=== PATIENT | female | born 1970 | race Caucasian/White ===

== ENCOUNTER 2020-07-17 09:03 | Emergency (ER) | payer MEDICAID, SELFPAY ==
[2020-07-17 09:04] VITALS: BP 109/78; PULSE 116; RESP 17; TEMP 36.1; O2SAT 99; BMI 21.9
--- NOTE | 2020-07-17 09:09 | NURSING ---
NO OLD EKGS
--- NOTE | 2020-07-17 09:33 | RAD_ITS ---
STUDY: X-RAY CHEST REASON FOR EXAM: Female, 50 years old. SYNCOPE, DIZZINESS X MONTHS, BECAME WORSE YESTERDAY TECHNIQUE: Single AP portable view of the chest. COMPARISON: None. FINDINGS: EKG electrodes are seen. The lungs are clear and expanded. There is no demonstrated pleural abnormality. Normal size heart. Normal mediastinum and pam. Normal visualized pulmonary arteries. Normal visualized aortic arch and descending thoracic aorta. Normal visualized thoracic spine. Normal visualized ribs, clavicles, and shoulders. There is no demonstrated abnormality of the visualized soft tissue structures of the upper abdomen. RAD/Chest 1 View (Portable) IMPRESSION: Normal x-ray examination of the chest. Electronically Signed: Rufino Griffin MD at 11:14 EST , Service support ,
--- NOTE | 2020-07-17 09:33 | CT_ITS ---
STUDY: CT BRAIN WITHOUT CONTRAST REASON FOR EXAM: Female, 50 years old. DIZZY XMONTHS, WORSE YESTERDAY, MULTIPLE SYNCOPAL EPISODES RADIATION DOSAGE (If Supplied By Facility): CTDIvol = ( 44.99 ) mGy, DLP = ( 762.36 ) mGycm TECHNIQUE: Transaxial CT imaging of the brain was performed without administration of intravenous contrast material. Individualized dose optimization techniques were used for this CT. COMPARISON: No relevant priors. FINDINGS: Normal soft tissue structures. Normal calvarium. Normal size ventricles and extra-axial spaces for the patient''s age. Normal white matter tracts of the cerebral hemispheres. Normal basal ganglia and thalami. Normal brainstem. Normal cerebellum. There is no intracranial hemorrhage. There are no findings of an acute ischemic infarction. Normal visualized paranasal sinuses. CT/Brain/Head without Contrast IMPRESSION: Normal unenhanced CT scan of the brain. Electronically Signed: Rufino Griffin MD at 10:32 EST , Service support ,
--- NOTE | 2020-07-17 09:34 | EKG12_ITS ---
Test Reason : SYNCOPE Blood Pressure : / mmHG Vent. Rate : 107 BPM Atrial Rate : 107 BPM P-R Int : 114 ms QRS Dur : 082 ms QT Int : 308 ms P-R-T Axes : 083 078 023 degrees QTc Int : 411 ms Sinus tachycardia Nonspecific T wave abnormality Abnormal ECG Confirmed by ROSA BAINS, REUBEN ([id number]), script editor SARAH NELSON ([id number]) on 07/18/2020 11:16:04 AM Referred By: TYESHA Confirmed By:REUBEN LEE MD
--- NOTE | 2020-07-17 09:35 | ED.DCSUM_ITS ---
History of Present Illness Chief Complaint: Dizziness Informant: Patient Narrative: 50-year-old female presenting for the evaluation of syncope. Patient states the past several months she has had several episodes of vertigo. In the past month the number of episodes have increased. She notes a sudden onset of room spinning and nausea. It is worse with positions. However yesterday she had several episodes where she suddenly would get hot sweaty and have more of a lightheadedness sensation and passed out. She not hurt her self in any of the episodes. She denies any chest pain palpitations or shortness of breath for the episodes. During the night she had one where she had some abdominal discomfort. She has a primary care physician in [place] but recently moved to [place]. She is currently treated for ADHD. She has never had an evaluation for vertigo. She tells me she tried some cannula with repositioning techniques this morning which did not make her feel good. Prior similar symptoms: Yes Past Medical History - Allergies and Home Meds Allergies/Adverse Reactions: Allergies No Known Allergies Allergy (Verified 07/17/20 09:03) Primary Care Physician: [facility] Doctor,Out of [NON-STAFF] - Past Medical History: - - ADHD Surgical History: noncontributory Lives: Spouse/ Significant Other Smoking Status: Former smoker Drugs: None Review of Systems General: Denies: Chills, Fever, Sweats Eyes: Denies: Visual changes - bilaterally, Diplopia ENT: Denies: Rhinorrhea, Sore throat Cardiovascular: Reports: - - Syncope. Denies: Chest pain, Palpitations, Heart racing Respiratory: Denies: Dyspnea, Cough, Dyspnea on exertion Gastrointestinal: Denies: Abdominal pain, Nausea, Vomiting, Diarrhea, Melena, Hematochezia Genitourinary: Denies: Dysuria, Hematuria, Frequency Musculoskeletal: Denies: Back pain, Extremity Pain Skin: Denies: Rash, Wounds Neurological: Reports: - - Vertigo. Denies: Headache, Weakness, Parasthesia, Numbness Physical Exam Vital Signs/Narrative: Vital Signs Temp Pulse Resp BP Pulse Ox 07/17/20 09:04 96.9 F L 116 H 17 109/78 99 Inital Vital Signs reviewed: Yes General: Well nourished, Well developed, No Acute Distress Head: Normocephalic, Atraumatic Eyes: Perrl, EOMI ENT: Moist mucous membranes, No rhinorrhea Neck: Supple, Nontender Cardiovascular: Regular rate, Regular rhythm, No murmurs Respiratory: No distress, CTA bilaterally, Chest nontender Abdomen: Soft, Nontender, Nondistended, Normal bowel sounds Back: Nontender, Normal Inspection Extremities: Nontender, No edema Skin: Normal color, No rash Neurological: Alert, Oriented x3, Cranial nerves II-XII grossly intact, Normal Strength, Normal Sensation Psychological: Normal affect, Normal Mood Diagnostic/Tx/Re-eval Clinical Impression(s) from Imaging Studies Brain CT 07/17/20 09:33 IMPRESSION: Normal unenhanced CT scan of the brain. Electronically Signed: Rufino Griffin MD at 10:32 EST , Service support , Laboratory Last Values WBC 7.7 K/mm3 (4.4-11.0) 07/17/20 09:55 RBC 5.38 M/mm3 (4.2-5.4) 07/17/20 09:55 Hgb 16.0 g/dL (12.0-15.0) H 07/17/20 09:55 Hct 48.9 % (37-47) H 07/17/20 09:55 MCV 90.9 fL (81-99) 07/17/20 09:55 MCH 29.7 pg (27.0-32.0) 07/17/20 09:55 MCHC 32.7 g/dL (32-36) 07/17/20 09:55 RDW Std Deviation 40.9 fl (35.1-43.9) 07/17/20 09:55 RDW Coeff of Mariama 12.3 % (11.6-14.6) 07/17/20 09:55 Plt Count 227 K/mm3 (150-450) 07/17/20 09:55 MPV 9.1 fl (6.2-12.0) 07/17/20 09:55 Immature Gran % (Auto) 0.300 % (0.0-0.9) 07/17/20 09:55 Neut % (Auto) 79.6 % (47-70) H 07/17/20 09:55 Lymph % (Auto) 12.7 % (19-41) L 07/17/20 09:55 [place] % (Auto) 6.1 % (0-10) 07/17/20 09:55 Eos % (Auto) 0.5 % (0-5) 07/17/20 09:55 Baso % (Auto) 0.8 % (0-1) 07/17/20 09:55 Absolute Neuts (auto) 6.2 X10^3/uL (2.0-7.7) 07/17/20 09:55 Absolute Lymphs (auto) 0.98 X10^3/uL (0.83-4.51) 07/17/20 09:55 Nucleated RBC % 0 % (0-5) 07/17/20 09:55 Sodium 138 mmol/L (136-145) 07/17/20 09:55 Potassium 4.0 mmol/L (3.5-5.1) 07/17/20 09:55 Chloride 103 mmol/L (98-107) 07/17/20 09:55 Carbon Dioxide 29.0 mmol/L (21.0-32.0) 07/17/20 09:55 Anion Gap 6 (5-15) 07/17/20 09:55 BUN 15 mg/dL (7-18) 07/17/20 09:55 Creatinine 0.71 mg/dL (0.55-1.02) 07/17/20 09:55 Estim Creat Clear Calc 75.81 ml/min 07/17/20 09:55 Est GFR (MDRD) Af Amer 113 mL/min (>60) 07/17/20 09:55 Est GFR (MDRD) Non-Af 93 mL/min (>60) 07/17/20 09:55 BUN/Creatinine Ratio 21.2 RATIO (10-20) H 07/17/20 09:55 Glucose 103 mg/dL (74-106) 07/17/20 09:55 Calcium 8.9 mg/dL (8.5-10.1) 07/17/20 09:55 Total Bilirubin 0.40 mg/dL (0.20-1.00) 07/17/20 09:55 AST 19 U/L (15-37) 07/17/20 09:55 ALT 20 U/L (13-56) 07/17/20 09:55 Alkaline Phosphatase 43 U/L (45-117) L 07/17/20 09:55 Troponin I < 0.015 ng/mL (<0.045) 07/17/20 09:55 Total Protein 7.0 g/dL (6.4-8.2) 07/17/20 09:55 Albumin 3.6 g/dL (3.2-5.0) 07/17/20 09:55 Globulin 3.4 g/dL (2.2-4.2) 07/17/20 09:55 Albumin/Globulin Ratio 1.1 RATIO (0.9-2.4) 07/17/20 09:55 Serum , Qual NEGATIVE Negative 07/17/20 09:55 - EKG Initial EKG Interpretation: Sinus Tachycardia - EKG demonstrates sinus tachycardia at a rate of 107. There is no concerning features of ACS or ectopy. No evidence of preexcitation. - Medical Decision Making My interpretation of the single view portable chest x-ray is no acute process. Normal mediastinal silhouette. EKG is a sinus tachycardia at a rate of 107. She has been into the 80s at rest become slightly tachycardic with conversation. The patient's had no events on the monitor. She appears very comfortable in the bed. Her laboratory analysis is essentially negative. At this point I do not see any emergent reason to hospitalize the patient. I will refer her to ENT because she would like to see somebody formally for her vertigo. She needs to establish primary care in the area and I can really give her several resources. In the interim if she is worsening she should return. ED Disposition - Plan for ED Patient: Disposition: Home or Assisted Living Diagnosis: Syncope, Vertigo Instructions: ED BPV Vertigo, ED Fainting, Uncertain Cause Prescriptions: Meclizine HCl [Antivert] 25 mg PO 4X/DAY PRN PRN #20 tab PRN Reason: Dizziness Prescription Printed Referrals: Sebastian Quesada MD [STAFF PHYSICIAN] - (for ENT for the vertigo) Erika Blair MD [STAFF PHYSICIAN] - (She is a primary care provider associated with [facility].) Clint Solomon MD [STAFF PHYSICIAN] - (She is a internal medicine physician with [facility] that is associated with a hospital.) Valentin Adkins III, MD [STAFF PHYSICIAN] - (He is a primary care provider associated with [facility]. They have a large number of physicians in the group and you may be referred to one of them to be seen.)
--- NOTE | 2020-07-17 09:40 | NURSING ---
NO OLD EKGS
[2020-07-17 10:05] LABS: Absolute Lymphocyte Count 0.98 X10^3/uL (0.83-4.51); Absolute Neutrophil Count 6.2 X10^3/uL (2.0-7.7); Basophil# 0.06 X10^3/uL; Basophil% 0.8 % (0-1); Eosinophil# 0.04 X10^3/uL; Eosinophils% 0.5 % (0-5); Hematocrit 48.9 % (37-47); Lymphocyte # 0.98 X10^3/ul (4.0); Lymphocyte % 12.7 % (19-41); Mean Corp Hgb Conc 32.7 g/dL (32-36); Mean Corpuscular Hgb 29.7 pg (27.0-32.0); Mean Corpuscular Volume 90.9 fL (81-99); Mean Platelet Vol. 9.1 fl (6.2-12.0); Monocyte# 0.47 X10^3/uL; Monocyte% 6.1 % (0-10); NRBC Flagged by Analyzer 0 % (0-5); Neutrophil # 6.16 X10^3/uL (2.7-7.7); Neutrophil % 79.6 % (47-70); Platelet Count 227 K/mm3 (150-450); RBC Distribution Width CV 12.3 % (11.6-14.6); RBC Distribution Width SD 40.9 fl (35.1-43.9); Red Blood Count 5.38 M/mm3 (4.2-5.4); White Blood Count 7.7 K/mm3 (4.4-11.0)
[2020-07-17 10:21] LABS: ALB/GLOB Ratio 1.1 RATIO (0.9-2.4); AST(SGOT) 19 U/L (15-37); Alanine Aminotransfer ALT/SGPT 20 U/L (13-56); Albumin, Serum 3.6 g/dL (3.2-5.0); Alkaline Phosphatase 43 U/L (45-117); Anion Gap 6 (5-15); BUN 15 mg/dL (7-18); BUN/Creat Ratio 21.2 RATIO (10-20); Calcium,Total 8.9 mg/dL (8.5-10.1); Chloride 103 mmol/L (98-107); Creatinine, Serum 0.71 mg/dL (0.55-1.02); EST Glomerular Filtration Rate 93 mL/min (>60); Est Glom Filt Rate - Afr Amer 113 mL/min (>60); Estimated Creatinine Clearance 75.81 ml/min; Globulin 3.4 g/dL (2.2-4.2); Glucose 103 mg/dL (74-106); Sodium Level 138 mmol/L (136-145)
[2020-07-17 10:34] LABS: Internal QC Validated? YES +Cl - CLEAR BKGD; Pregnancy, Serum, hCG Quali. NEGATIVE Negative
[2020-07-17 11:28] VITALS: BP 95/70; PULSE 97; RESP 16; O2SAT 99
== END 2020-07-17 11:30 | disposition home or self-care (01) ==
PROVIDERS: Emergency Provider Emergency Medicine
DX: R55 Syncope and collapse (principal); F90.9 Attention-deficit hyperactivity disorder, unspecified type; Z87.891 Personal history of nicotine dependence
CPT/HCPCS: 70450; 71045; 80053; 84484; 84703; 85025; 93005; 99284; A4216

== ENCOUNTER 2022-05-12 13:32 | Outpatient (CLI) | payer MEDICAID, SELFPAY ==
--- NOTE | 2022-05-12 16:11 | NEURO_ITS ---
NCS and/or EMG Patient Report Ordering Doctor: Mari Smalls DATE OF SERVICE: 05/12/22 Indication: Bilateral thumb pain and hand swelling (right worse than left). Remote history of carpal tunnel syndrome status post surgical release. Findings: Nerve conduction studies were performed in the right and left upper extremities. The right median motor study recording the abductor pollicis brevis showed a normal amplitude, normal distal latency and normal conduction velocity. The right ulnar motor study recording the abductor digiti minimi showed a normal amplitude, normal distal latency and normal conduction velocity. No conduction block or focal slowing was present across the elbow. The right median sensory response recording digit two showed a borderline amplitude, normal latency and normal conduction velocity. The right ulnar sensory response recording digit five showed a normal amplitude, latency and conduction velocity. The right radial sensory response recording over the extensor snuff box showed a normal amplitude, latency and conduction velocity. The left median motor study recording the abductor pollicis brevis showed a normal amplitude, normal distal latency and normal conduction velocity. The left ulnar motor study recording the abductor digiti minimi showed a normal amplitude, normal distal latency and normal conduction velocity. No conduction block or focal slowing was present across the elbow. The left median sensory response recording digit two showed a reduced amplitude, normal latency and normal conduction velocity. The left ulnar sensory response recording digit five showed a normal amplitude, latency and conduction velocity. The left radial sensory response recording over the extensor snuff box showed a normal amplitude, latency and conduction velocity. Right median-ulnar lumbrical / interosseous motor latencies showed a normal median latency compared to the ulnar. Left median-ulnar lumbrical / interosseous motor latencies showed a normal median latency compared to the ulnar. Needle EMG was intentionally omitted given the paucity of findings on the nerve conduction studies. Impression: This is an essentially normal study. There is no electrophysiologic evidence of median neuropathy across the wrist on either side. The slightly diminished left median sensory response may be related to her carpal tunnel syndrome. In addition, there is no electrophysiologic evidence of other entrapment neuropathy in either upper extremity. A neuromuscular ultrasound of the median nerves and carpometacarpal joints could be considered for further evaluation of the patient's complaints. Will Purdy D.O. Multi Select Codes Neurology Neurology Interp Codes: 78871-75 [facility] test 13/> studies (interp)
== END 2022-05-12 23:59 | disposition home or self-care (01) ==
LOC: PSN 13:36
PROVIDERS: PCP Family Medicine; Referring Provider Physician Assistant; Visit Provider Physician Assistant
DX: R20.0 Anesthesia of skin (principal); R20.2 Paresthesia of skin; M25.531 Pain in right wrist; M25.532 Pain in left wrist
CPT/HCPCS: 95913